=== PATIENT | female | born 1995 | race Caucasian/White ===

== ENCOUNTER 2021-12-28 18:33 | Emergency (ER) | payer OTHER | END 2021-12-28 21:03 | disposition home or self-care (01) | LOC: ER1 18:33 | DX: U07.1 COVID-19 (principal); Z88.7 Allergy status to serum and vaccine | CPT/HCPCS: 0240U; 71045; 87081; 87880; 99283 ==

== ENCOUNTER 2022-02-11 20:35 | Emergency (ER) | payer OTHER | END 2022-02-12 01:15 | disposition left against medical advice (07) | LOC: ER1 20:35 | DX: Z53.21 Procedure and treatment not carried out due to patient leaving prior to being seen by health care provider (principal) ==